=== PATIENT | female | born 1995 | race Caucasian/White ===

== ENCOUNTER 2018-02-14 07:02 | Emergency (ER) | payer OTHER ==
[~2018-02-14] VITALS: Ht 167.6 cm; Wt 70.9 kg
[2018-02-14 07:14] VITALS: BP 123/76; Ht 167.6 cm; Wt 70.9 kg
== END 2018-02-14 08:12 | disposition home or self-care (01) ==
LOC: ED 07:02
DX: N39.0 Urinary tract infection, site not specified (principal)
CPT/HCPCS: J0696